=== PATIENT | female | born 1980 | race Caucasian/White ===

== ENCOUNTER 2017-09-18 16:43 | Emergency (ER) | payer MEDICAID ==
[~2017-09-18] VITALS: Wt 117.0 kg
[~2017-09-18 16:43] MED LIST: ALBUTEROL0.09 MG/Ac INH; AUGMENTIN 875875 MG PO; BIAXIN500 MG PO; CELEXA40 MG PO; CIPRODEX 0.3%-7.5 ML OT; CLARITIN10 MG PO; INDERAL LA120 MG PO; KEFLEX500 MG PO; LEVAQUIN500 M1 PO; MOTRIN400 MG PO; MOTRIN800 MG PO; NORCO 325 MG-51 TAB PO; PAMELOR75 MG PO; PEN-VEE K500 MG PO; PEN-VK500 MG PO; PREDNICOT20 MG PO; PREDNISONE20 MG PO; ULTRAM50 MG PO; VALIUM10 MG PO; VICODIN 5/500 505 MG PO; VISTARIL25 M1 PO; ZOFRAN ODT4 MG SL; ZYRTEC10 MG PO
[2017-09-18 16:44] VITALS: BP 138/72
[2017-09-18] MEDS ORDERED: DIVALPROEX SOD250 MG PO (16:44)
[2017-09-18] MEDS ORDERED: DIAZEPAM5 MG PO (16:45)
[2017-09-18] MEDS ORDERED: NAPROSYN500 MG PO (19:07)
[2017-09-18] MEDS ORDERED: CYCLOBENZAPRINE5 M3 PO (19:07)
== END 2017-09-18 19:30 | disposition home or self-care (01) ==
LOC: ED 16:43
DX: M54.16 Radiculopathy, lumbar region (principal)

== ENCOUNTER 2018-07-30 23:48 | Emergency (ER) | payer MEDICAID ==
[~2018-07-30] VITALS: Ht 175.2 cm; Wt 108.9 kg
[~2018-07-30 23:48] MED LIST changes: +CYCLOBENZAPRINE5 M3 PO; +DIAZEPAM5 MG PO; +DIVALPROEX SOD250 MG PO; +NAPROSYN500 MG PO
[2018-07-30 23:49] VITALS: BP 139/88
[2018-07-31] MEDS ORDERED: CIPROFLOXACIN 110 ML OPH (00:08)
== END 2018-07-31 00:14 | disposition home or self-care (01) ==
LOC: ED 23:48
DX: H10.9 Unspecified conjunctivitis (principal); R05 Cough; Z79.899 Other long term (current) drug therapy